=== PATIENT | female | born 1955 | race Caucasian/White ===

== ENCOUNTER → 2016-07-31 | Outpatient (REF) | payer OTHER | LOC: M LAB REF 16:21 | PROVIDERS: ATTEND Surgery | DX: N30.00 Acute cystitis without hematuria (principal) ==

== ENCOUNTER 2017-03-18 18:22 | Emergency (ER) | payer OTHER ==
[~2017-03-18] VITALS: Ht 160 cm; Wt 61.4 kg
[2017-03-18] MEDS ORDERED: CURCPOW XX (18:38)
[2017-03-18] MEDS ORDERED: FISH1000 PO (18:38)
[2017-03-18] MEDS ORDERED: PROBCAP4 PO (18:38)
[2017-03-18] MEDS ORDERED: BONE STRENGTH PO (18:38)
[2017-03-18] MEDS ORDERED: [UNRECOGNIZED DRUG - CODE] PO (18:38)
[2017-03-18] MEDS ORDERED: PERCOCET 5MG/325MG TAB PO ONE (20:00)
[2017-03-18] MEDS ORDERED: PERC5TAB12 PO (20:44)
[2017-03-18] MEDS ORDERED: CYCL10TA PO (20:44)
[2017-03-18] MEDS ORDERED: CYCLOBENZAPRINE 10 MG TAB PO ONE (21:00)
[2017-03-18 21:06] VITALS: BP 146/84
--- NOTE | 2017-03-19 07:58 | REP ---
Clinical: Trauma. Pain. Technique: AP view of the pelvis with neutral and frog lateral views of the right hip. Findings: The osseous structures and joint spaces are intact and normal for age. There is no evidence for acute fracture or dislocation. Surrounding soft tissues are unremarkable. No subcutaneous emphysema or radiodense foreign body. Impression: Age appropriate pelvis and right hip radiographs. Signed by Aly Spears MD 03/19/2017 07:49 A
--- NOTE | 2017-03-19 07:58 | REP ---
Clinical: Trauma. Pain. Technique: AP, lateral, bilateral oblique and sunrise views right knee . Findings: The osseous structures and joint spaces are intact and normal. There is no evidence for acute fracture or dislocation. No joint effusion is appreciated. Surrounding soft tissues are unremarkable. No subcutaneous emphysema or radiodense foreign body. Impression: Normal examination. No acute fracture or dislocation. Signed by Aly Spears MD 03/19/2017 07:50 A
== END 2017-03-18 21:09 | disposition home or self-care (01) ==
LOC: M ED 18:22
DX: M54.16 Radiculopathy, lumbar region (principal); E78.5 Hyperlipidemia, unspecified; M54.2 Cervicalgia; Z88.0 Allergy status to penicillin; Z88.1 Allergy status to other antibiotic agents; Z88.8 Allergy status to other drugs, medicaments and biological substances

== ENCOUNTER 2019-08-05 16:23 | Emergency (ER) | payer OTHER ==
[~2019-08-05] VITALS: Ht 160 cm; Wt 65.1 kg
[~2019-08-05 16:23] MED LIST: BONE STRENGTH PO; CURCPOW XX; CYCL10TA PO; FISH1000 PO; PERC5TAB12 PO; PROBCAP4 PO; [UNRECOGNIZED DRUG - CODE] PO
[2019-08-05] MEDS ORDERED: CHRO400T4 PO (17:00)
[2019-08-05] MEDS ORDERED: K2 P1TAB PO (17:00)
--- NOTE | 2019-08-05 17:22 | REPVR ---
PROCEDURE INFORMATION: Exam: CT Head Without Contrast Exam date and time: 08/05/2019 5:04 PM Age: 64 years old Clinical indication: Injury or trauma; Injury history: Bumped head; Initial encounter; Blunt trauma (contusions or hematomas) TECHNIQUE: Imaging protocol: Computed tomography of the head without contrast. Radiation optimization: All CT scans at this facility use at least one of these dose optimization techniques: automated exposure control; mA and/or kV adjustment per patient size (includes targeted exams where dose is matched to clinical indication); or iterative reconstruction. COMPARISON: No relevant prior studies available. FINDINGS: Brain: No acute intracranial hemorrhage, cerebral edema, or midline shift. Ventricles: No hydrocephalus. Bones/joints: No acute fracture. Sinuses: No acute sinusitis. Mastoid air cells: Visualized mastoid air cells are well aerated. Soft tissues: Unremarkable. IMPRESSION: No acute intracranial abnormality. Electronically signed by: Nadeem Brandon On 08/05/2019 17:22:36 PM
[2019-08-05] MEDS ORDERED: PROPARACAINE 0.5% OPHTH SOL 15ML OS ONE (17:45)
--- NOTE | 2019-08-05 19:43 | REPVR ---
PROCEDURE INFORMATION: Exam: MR Head Without Contrast Exam date and time: 08/05/2019 7:23 PM Age: 64 years old Clinical indication: Weakness, extremity; Patient HX: Left sided weakness and facial paresthesia; Additional info: Left facial paresthesia TECHNIQUE: Imaging protocol: MR of the head without contrast. COMPARISON: CT Head without contrast 08/05/2019 5:02 PM FINDINGS: Ventricles demonstrate normal size and configuration. Major vascular flow voids at the skull base are preserved. No extra-axial fluid collection. No midline shift or intracranial mass effect. Mild nonspecific white matter gliosis, probable chronic microvascular ischemia. No cerebral edema. No diffusion restriction. Visualized paranasal sinuses and mastoid air cells are clear. IMPRESSION: No acute intracranial abnormality. Electronically signed by: Doug Romero On 08/05/2019 19:43:20 PM
--- NOTE | 2019-08-05 19:45 | REPVR ---
PROCEDURE INFORMATION: Exam: MR Angiogram Head Without Contrast, Arteries Exam date and time: 08/05/2019 7:23 PM Age: 64 years old Clinical indication: Patient HX: Left sided weakness and facial paresthesia; Additional info: Left facial paresthesia TECHNIQUE: Imaging protocol: MR angiogram head without contrast. Exam focused on the arteries. 3D rendering: MIP and/or 3D reconstructed images were created by the technologist. COMPARISON: CT Head without contrast 08/05/2019 5:02 PM FINDINGS: Right internal carotid artery: Unremarkable. Intracranial segment is patent with no significant stenosis. No aneurysm. Right anterior cerebral artery: Unremarkable. No occlusion or significant stenosis. No aneurysm. Right middle cerebral artery: Unremarkable. No occlusion or significant stenosis. No aneurysm. Right posterior cerebral artery: Unremarkable. No occlusion or significant stenosis. No aneurysm. Right vertebral artery: Unremarkable. No occlusion or significant stenosis. No aneurysm. Left internal carotid artery: Unremarkable. Intracranial segment is patent with no significant stenosis. No aneurysm. Left anterior cerebral artery: Hypoplastic left A1 segment. Left middle cerebral artery: Unremarkable. No occlusion or significant stenosis. No aneurysm. Left posterior cerebral artery: Unremarkable. No occlusion or significant stenosis. No aneurysm. Left vertebral artery: Unremarkable. No occlusion or significant stenosis. No aneurysm. Basilar artery: Unremarkable. No occlusion or significant stenosis. No aneurysm. IMPRESSION: No hemodynamically significant stenosis or large vessel occlusion. Electronically signed by: Doug Romero On 08/05/2019 19:45:18 PM
[2019-08-05 21:01] VITALS: BP 150/87
== END 2019-08-05 21:02 | disposition home or self-care (01) ==
LOC: M ED 16:23
DX: S09.90XA Unspecified injury of head, initial encounter (principal); W01.190A Fall on same level from slipping, tripping and stumbling with subsequent striking against furniture, initial encounter; Y92.009 Unspecified place in unspecified non-institutional (private) residence as the place of occurrence of the external cause; Y93.9 Activity, unspecified; Y99.9 Unspecified external cause status; Z88.0 Allergy status to penicillin; Z88.2 Allergy status to sulfonamides; Z88.8 Allergy status to other drugs, medicaments and biological substances

== ENCOUNTER 2024-07-23 14:17 | Emergency (ER) | payer OTHER ==
[~2024-07-23] VITALS: Ht 160 cm; Wt 69.1 kg
[~2024-07-23 14:17] MED LIST changes: +CHRO400T4 PO; +CYCL-707 PO; -CYCL10TA PO; +K2 P1TAB PO
[2024-07-23] MEDS ORDERED: PRED20TA PO (17:35)
[2024-07-23] MEDS ORDERED: METH-1164 PO (17:38)
[2024-07-23 18:00] VITALS: BP 180/94; TEMP 97.9; O2SAT 97
== END 2024-07-23 18:03 | disposition home or self-care (01) ==
LOC: M ED 14:17
DX: M54.50 Low back pain, unspecified (principal); V40.5XXA Car driver injured in collision with pedestrian or animal in traffic accident, initial encounter; E78.5 Hyperlipidemia, unspecified; K21.9 Gastro-esophageal reflux disease without esophagitis; Z88.1 Allergy status to other antibiotic agents; Z88.2 Allergy status to sulfonamides; Z88.8 Allergy status to other drugs, medicaments and biological substances; Z88.7 Allergy status to serum and vaccine; Z79.899 Other long term (current) drug therapy